=== PATIENT | female | born 1970 | race Caucasian/White ===

== ENCOUNTER 2018-01-28 07:07 | Day surgery (SDC) | payer MEDICARE, MEDICAID ==
[~2018-01-28] VITALS: Ht 166.4 cm; Wt 61.4 kg
[2018-01-28] VITALS (14 sets, daily range): BP systolic 100–148; BP diastolic 59–89
[~2018-01-28 07:07] MED LIST: ALB0.5UD IH; CELE-193 PO; CLON-528 PO; DULO60CA45; HYDR-565 PO; HYDR-569 PO; LAMO100T65 PO; LANS15CA47 PO; LORA-660 PO; METO-410 PO; ONDA4TAB6 PO; QUET200T30 PO; SPIIN INH; TIZA4CAP PO; TRAZ-91 PO; ZOLP5TAB8 PO
[2018-01-28] MEDS ORDERED: normal saline 1000ml 1,000 ML IV PRN (07:30)
[2018-01-28] MEDS ORDERED: QUET-1 PO (07:58)
[2018-01-28] MEDS ORDERED: CELE-193 PO (07:58)
[2018-01-28] MEDS ORDERED: DULO20CA50 PO (07:58)
[2018-01-28] MEDS ORDERED: TRAZ-146 PO (07:58)
[2018-01-28] MEDS ORDERED: DEXL60CA3 PO (07:58)
[2018-01-28 08:07] LABS: BASOPHILS # (AUTO) 0.1 X10'3 (0-0.2); BASOPHILS % (AUTO) 1.1 % (0-1); EOSINOPHILS % (AUTO) 0.1 % (0-6); HEMATOCRIT 43.2 % (35.0-45.0); HEMOGLOBIN 14.9 g/dl (12.0-16.0); LYMPHOCYTES % (AUTO) 36.7 % (21-51); MEAN CORPUSCULAR HEMOGLOBIN 34.5 PG (27.0-31.0); MEAN CORPUSCULAR HGB CONC 34.5 % (33.0-36.5); MEAN CORPUSCULAR VOLUME 100.2 FL (78-98); MEAN PLATELET VOLUME 7.2 FL (7.4-10.4); MONOCYTES # (AUTO) 0.5 X10'3 (0-0.9); MONOCYTES % (AUTO) 8.9 % (2-12); NEUTROPHILS # (AUTO) 2.9 X10'3 (1.8-7.7); NEUTROPHILS % (AUTO) 53.2 % (42-75); PLATELET COUNT 313 X10'3 (140-440); RED BLOOD COUNT 4.31 X10'6 (4.20-5.60); WHITE BLOOD COUNT 5.5 X10'3 (4.5-11.0)
[2018-01-28] MEDS ORDERED: fentaNYL/PF 50MCG/1 ML 2ML syringe IV ONE (08:10)
[2018-01-28] MEDS ORDERED: MIDAZolam 1mg/ml 10ml vial IV ONE (08:10)
[2018-01-28 08:13] LABS: INR 0.9 INR; PROTHROMBIN TIME 9.8 SECONDS (9.0-12.0)
[2018-01-28] MEDS ORDERED: pneumococcal 23-VAL P-sac vacc 25 mcg/0.5ml vial IMVAC ONE (10:00)
[2018-01-28] MEDS ORDERED: normal saline 1000ml 1,000 ML IV SCH (10:23)
== END 2018-01-28 12:30 | disposition home or self-care (01) ==
LOC: SSTAY O 07:07
PROVIDERS: ATTEND Radiology Diagnostic Radiology
DX: K73.2 Chronic active hepatitis, not elsewhere classified (principal); K74.0 Hepatic fibrosis; J44.9 Chronic obstructive pulmonary disease, unspecified; K21.9 Gastro-esophageal reflux disease without esophagitis; E03.9 Hypothyroidism, unspecified; I10 Essential (primary) hypertension; F17.210 Nicotine dependence, cigarettes, uncomplicated; M19.90 Unspecified osteoarthritis, unspecified site; F32.89 Other specified depressive episodes; Z23 Encounter for immunization; Z85.41 Personal history of malignant neoplasm of cervix uteri; Z88.0 Allergy status to penicillin; Z98.51 Tubal ligation status; Z88.5 Allergy status to narcotic agent; Z79.891 Long term (current) use of opiate analgesic; Z88.8 Allergy status to other drugs, medicaments and biological substances; Z79.899 Other long term (current) drug therapy; Z98.890 Other specified postprocedural states
CPT/HCPCS: 36415; 47000; 76942; 85025; 85610; 90732; J2250; J3010; J7030; 88307; 88313

== ENCOUNTER 2019-06-01 21:35 | Emergency (ER) | payer MEDICARE, MEDICAID ==
[~2019-06-01] VITALS: Ht 165.1 cm; Wt 60.9 kg
[~2019-06-01 21:35] MED LIST changes: +DEXL60CA3 PO; +DULO20CA50 PO; -HYDR-565 PO; -HYDR-569 PO; -LANS15CA47 PO; -ONDA4TAB6 PO; +QUET-1 PO; -QUET200T30 PO; -TIZA4CAP PO; +TRAZ-219 PO; -TRAZ-91 PO; -ZOLP5TAB8 PO
[2019-06-01] MEDS ORDERED: morphine 4 MG/ML inj SYRINge IV PRN (21:50)
[2019-06-01] MEDS ORDERED: morphine 10mg/ml inj. IV PRN (21:53)
[2019-06-01 22:15] LABS: BASOPHILS # (AUTO) 0.1 X10'3 (0-0.2); BASOPHILS % (AUTO) 0.8 % (0-1); EOSINOPHILS % (AUTO) 0.2 % (0-6); HEMATOCRIT 40.4 % (35.0-45.0); HEMOGLOBIN 14.2 g/dl (12.0-16.0); LYMPHOCYTES # (AUTO) 2.9 X10'3 (1.1-4.8); LYMPHOCYTES % (AUTO) 38.2 % (21-51); MEAN CORPUSCULAR HEMOGLOBIN 34.2 PG (27.0-31.0); MEAN CORPUSCULAR HGB CONC 35.3 g/dL (33.0-36.5); MEAN CORPUSCULAR VOLUME 97.1 FL (78-98); MEAN PLATELET VOLUME 7.1 FL (7.4-10.4); MONOCYTES # (AUTO) 0.7 X10'3 (0-0.9); MONOCYTES % (AUTO) 9.4 % (2-12); NEUTROPHILS # (AUTO) 3.9 X10'3 (1.8-7.7); NEUTROPHILS % (AUTO) 51.4 % (42-75); PLATELET COUNT 339 X10'3 (140-440); RED BLOOD COUNT 4.16 X10'6 (4.20-5.60); RED CELL DISTRIBUTION WIDTH 13.6 % (11.5-14.5); WHITE BLOOD COUNT 7.5 X10'3 (4.5-11.0)
[2019-06-01 22:26] LABS: PARTIAL THROMBOPLASTIN TIME 31 SECONDS (22-32)
[2019-06-01 22:28] LABS: ALBUMIN 3.4 G/DL (3.4-5.0); ALBUMIN/GLOBULIN RATIO 0.8 (1.1-1.5); ANION GAP 10 (8-16); ASPARTATE AMINO TRANSFERASE 13 U/L (10-37); BILIRUBIN,TOTAL 0.4 MG/DL (0.1-1.0); BLOOD UREA NITROGEN 8 MG/DL (7-18); BUN/CREATININE RATIO 12.5 (6.6-38.0); CALCIUM 8.6 MG/DL (8.5-10.1); CHLORIDE 103 MMOL/L (99-107); CREATININE 0.64 MG/DL (0.40-0.90); GLUCOSE 91 MG/DL (70-104); SODIUM 138 MMOL/L (135-145); TOTAL CARBON DIOXIDE 25.2 MMOL/L (24-32); TOTAL PROTEIN 7.5 G/DL (6.4-8.2); eGFR > 90 ML/MIN
[2019-06-01 22:29] LABS: ALANINE AMINOTRANSFERASE 9 U/L (12-78); ALKALINE PHOSPHATASE 71 IU/L (46-116)
[2019-06-01] MEDS ORDERED: HYDROcodone/acetaminophen 10/325mg tab PO ONE (23:00)
[2019-06-01 23:08] VITALS: BP 140/94
[2019-06-02] MEDS ORDERED: HYDR-4353 PO (00:02)
== END 2019-06-02 00:08 | disposition home or self-care (01) ==
LOC: ER 21:35
DX: S70.02XA Contusion of left hip, initial encounter (principal); E78.00 Pure hypercholesterolemia, unspecified; I10 Essential (primary) hypertension; J45.909 Unspecified asthma, uncomplicated; J44.9 Chronic obstructive pulmonary disease, unspecified; K21.9 Gastro-esophageal reflux disease without esophagitis; G89.29 Other chronic pain; M06.9 Rheumatoid arthritis, unspecified; F17.200 Nicotine dependence, unspecified, uncomplicated; F19.90 Other psychoactive substance use, unspecified, uncomplicated; F12.90 Cannabis use, unspecified, uncomplicated; F31.9 Bipolar disorder, unspecified; Z79.899 Other long term (current) drug therapy; Z98.890 Other specified postprocedural states; Z88.5 Allergy status to narcotic agent; Z88.0 Allergy status to penicillin; Z91.09 Other allergy status, other than to drugs and biological substances; W18.39XA Other fall on same level, initial encounter; Y93.89 Activity, other specified; Y92.59 Other trade areas as the place of occurrence of the external cause; Y99.8 Other external cause status
CPT/HCPCS: 36415; 71045; 73502; 80053; 85025; 85610; 85730; 86885; 86900; 86901; 93005; 96374; 99284; J2270

== ENCOUNTER 2022-01-22 04:16 | Emergency (ER) | payer MEDICARE, MEDICAID ==
[~2022-01-22] VITALS: Ht 167.6 cm; Wt 72.7 kg
[~2022-01-22 04:16] MED LIST changes: -DULO60CA45; +DULO60CA60; +LORA-657 PO; -LORA-660 PO; -TRAZ-219 PO; +TRAZ-256 PO
[2022-01-22 05:10] LABS: BASOPHILS % (AUTO) 0.2 % (0-1); EOSINOPHILS % (AUTO) 0.1 % (0-6); HEMATOCRIT 43.8 % (35.0-45.0); HEMOGLOBIN 14.8 g/dl (12.0-16.0); LYMPHOCYTES # (AUTO) 1.4 X10'3 (1.1-4.8); LYMPHOCYTES % (AUTO) 11.8 % (21-51); MEAN CORPUSCULAR HEMOGLOBIN 31.9 PG (27.0-31.0); MEAN CORPUSCULAR HGB CONC 33.7 g/dL (33.0-36.5); MEAN CORPUSCULAR VOLUME 94.6 FL (78-98); MEAN PLATELET VOLUME 7.3 FL (7.4-10.4); MONOCYTES % (AUTO) 8.1 % (2-12); NEUTROPHILS # (AUTO) 9.6 X10'3 (1.8-7.7); NEUTROPHILS % (AUTO) 79.8 % (42-75); PLATELET COUNT 342 X10'3 (140-440); RED BLOOD COUNT 4.63 X10'6 (4.20-5.60); RED CELL DISTRIBUTION WIDTH 13.8 % (11.5-14.5); WHITE BLOOD COUNT 12.1 X10'3 (4.5-11.0)
[2022-01-22] MEDS ORDERED: normal saline 1000ML IV soln IVB ONE ×2 (05:10→05:45)
[2022-01-22] MEDS ORDERED: ondansetron/PF 4mg/2ml inj IV ONE (05:10)
[2022-01-22 05:12] LABS: CLARITY,URINE CLOUDY (Clear); COLOR,URINE YELLOW (Yellow); GLUCOSE, URINE NEGATIVE (Neg); KETONES,URINE NEGATIVE (Neg); LEUKOCYTE ESTERASE ,URINE NEGATIVE (Neg); OCCULT BLOOD,URINE NEGATIVE (Neg); PH,URINE 5.5 (4.8-8.0); PROTEIN,URINE 30 mg/dl (Neg); UROBILINOGEN,URINE 0.2 E.U/dL (0.2-1.0)
[2022-01-22 05:13] LABS: UA COLLECTION TYPE FOLEY CATH
[2022-01-22 05:15] LABS: NITRITES, URINE NEGATIVE (Neg)
[2022-01-22 05:22] LABS: ALANINE AMINOTRANSFERASE 33 U/L (12-78); ALBUMIN 3.9 G/DL (3.4-5.0); ALKALINE PHOSPHATASE 85 IU/L (46-116); ANION GAP 11 (8-16); ASPARTATE AMINO TRANSFERASE 98 U/L (10-37); BILIRUBIN,TOTAL 0.8 MG/DL (0.1-1.0); BLOOD UREA NITROGEN 23 MG/DL (7-18); CALCIUM 9.2 MG/DL (8.5-10.1); CHLORIDE 105 MMOL/L (99-107); CREATININE 1.35 MG/DL (0.40-0.90); GLUCOSE 128 MG/DL (70-104); POTASSIUM 3.4 MMOL/L (3.5-5.1); SODIUM 143 MMOL/L (135-145); TOTAL CARBON DIOXIDE 27.2 MMOL/L (24-32); TOTAL PROTEIN 7.7 G/DL (6.4-8.2); eGFR 41 ML/MIN
--- NOTE | 2022-01-22 05:24 | NUR ---
[id number] Written by SO for gravely disabled
[2022-01-22 05:30] LABS: AMORPHOUS URATES 3+; BACTERIA,URINE NONE SEEN /HPF (Neg); MUCUS STRANDS FEW /LPF (Neg); RBC,URINE NONE SEEN /HPF (0-2); SQUAMOUS EPITHELIAL CELL,UR MODERATE /LPF (FEW); WBC,URINE 0-4 /HPF (0-4)
[2022-01-22 05:31] LABS: ETHANOL < 0.010 GM/DL (0.0-0.010)
[2022-01-22 05:36] LABS: TRANSITIONAL EPI CELLS,URINE FEW /HPF
[2022-01-22 05:57] LABS: URINE AMPHETAMINE SCREEN POSITIVE (Neg); URINE BARBITUATE SCREEN NEGATIVE (Neg); URINE BENZODIAZEPINES SCREEN POSITIVE (Neg); URINE CANNABINOID SCREEN POSITIVE (Neg); URINE COCAINE SCREEN NEGATIVE (Neg); URINE METHADONE SCREEN NEGATIVE (Neg); URINE OPIATE SCREEN NEGATIVE (Neg); URINE PHENCYCLIDINE SCREEN NEGATIVE (Neg)
--- NOTE | 2022-01-22 07:12 | NUR ---
PT ABLE TO TELL ME HER NAME, AND KNOWS SHE IS IN THE HOSPITAL. I ASKED PT IF SHE USES ANY DRUGS AND SHE STATED "I WOULD DO SOME IF YOU WOULD LEAVE ME THE FUCK ALONE."
--- NOTE | 2022-01-22 09:49 | NUR ---
PT STATED " LAST NIGHT WAS JUST A TERRIBLE NIGHT, I TOOK TOO MANY PILLS." PT STATES SHE TAKES TRAZODONE AND SEROQUEL WHICH SHE SAYS ARE PRESCRIBED. PT DENIES ANY DRUG USE.
--- NOTE | 2022-01-22 13:35 | NUR ---
Packet sent to [facility]
[2022-01-22] MEDS ORDERED: haloperidol lactate 5mg/ml inj IM ONE (14:05)
[2022-01-22] MEDS ORDERED: diphenhydrAMINE 50 mg/ml inj IV ONE (14:05)
[2022-01-22] MEDS ORDERED: LORazepam 2 mg/ml vial IV ONE (14:05)
--- NOTE | 2022-01-22 14:45 | NUR ---
Received Patient to Bed #22 from the ED. Pt's soft wrist restraints untied and pt no longer restrained as of 1445. Patient yelling incoherent words. Restless in bed. Transferred from [facility] to medical bed. HOB slightly elevated. Patient has a Saline Lock in her left arm. F/C patent and draining a small amount of juan urine. Patient picking at the air and the blanket on her bed. Sitting up and down. Patient opens eyes in a sitting position then will relax and lay back down with her head on the pillow. This continued for the next 45 minutes. Sitting with patient 1:1 at bedside. Patient finally fell asleep at approximately 1535. Sleeping at this time. Will continue to monitor closely.
--- NOTE | 2022-01-22 16:22 | NUR ---
Pt. continues to sleep at this time. Will continue to monitor.
--- NOTE | 2022-01-22 18:58 | NUR ---
Received pt sleeping. Catheter in. Restraints not in use. Breathing is even and non labored. Pt resting peacfully at this time.
--- NOTE | 2022-01-22 21:43 | NUR ---
Patient appears to be sleeping.
--- NOTE | 2022-01-22 23:27 | NUR ---
Patient awake. asked to use restroom. Catheter not in when pt awoken. patient asked for sandwich and water. Patient denies any S/S of pain or trauma in groin area, will continue to monitor.
--- NOTE | 2022-01-23 00:53 | NUR ---
Pt appears to be sleeping at this time.
--- NOTE | 2022-01-23 03:49 | NUR ---
Pt appears to be sleeping at this time.
--- NOTE | 2022-01-23 05:43 | NUR ---
Patient cooperative with vital signs, appears to be sleeping at this moment.
--- NOTE | 2022-01-23 06:40 | NUR ---
Patient sleeping supine. No distress observed. Continue to monitor.
[2022-01-23] MEDS: OLANZapine 5mg rapidly disint. tablet PO SCH ×3 (08:00→19:09)
--- NOTE | 2022-01-23 08:11 | NUR ---
Patient sitting up and eating breakfast. RN gave patient her medication but patient refused. Continue to monitor.
--- NOTE | 2022-01-23 10:03 | NUR ---
Patient sleeping supine. No distress observed. Continue to monitor.
--- NOTE | 2022-01-23 12:06 | NUR ---
Patient sleeping. RN placed patient's tray at bedside. RN advised patient that her lunch was here. Patient did not awaken. Respirations equal and nonlabored. Continue to monitor.
--- NOTE | 2022-01-23 14:03 | NUR ---
Nora sleeping supine. Patient is lightly snoring. No distress observed. Continue to monitor.
--- NOTE | 2022-01-23 16:24 | NUR ---
Patient sleeping on right side. No distress observed. Patient is snoring lightly. Continue to monitor.
--- NOTE | 2022-01-23 17:35 | NUR ---
Patient awoke and eating her cold lunch. RN advised patient that warm food should be coming in about 30 minutes. Patient asked RN how long she would be here. RN explained the 72 hour hold and getting her into a psychiatric facility to get her back on her meds. Patient stated "Then I'm going to be here forever because I'm no getting on any GD meds!" Continue to monitor.
[2022-01-23] MEDS ORDERED: albuterol 2.5 MG/3 ML nebule NEB ONE (18:35)
--- NOTE | 2022-01-23 19:04 | NUR ---
The patient was up to use the bathroom and became short of breath and asking for a breathing treatment. She was coughing and had increased anxiety. HR 107 and 02 sats were 93% on room air. Lungs were very coarse. Dr. Vizcarra made aware and orders received. The patient had the breathing treatment and stated she was doing better after wards. She is very irritable with any interaction. She was crying and stated that she just wanted to . She was not cooperative with answering more than one or two questions. She did eat a small amount of her dinner. She was given extra juice and fresh water and encouraged to increase po fluids. She did take the zypexa but was irritable about it.
--- NOTE | 2022-01-23 21:07 | NUR ---
The patient appears to be sleeping
--- NOTE | 2022-01-23 23:19 | NUR ---
The patient appears to be sleeping
--- NOTE | 2022-01-24 00:57 | NUR ---
The patient appears to be sleeping
--- NOTE | 2022-01-24 02:06 | NUR ---
The patient appears to be sleeping
--- NOTE | 2022-01-24 03:41 | NUR ---
The patient appears to be sleeeping
--- NOTE | 2022-01-24 05:44 | NUR ---
The patient appears to be sleeping
--- NOTE | 2022-01-24 06:45 | NUR ---
Patient sleeping supine. No distress observed. Continue to monitor.
--- NOTE | 2022-01-24 07:43 | NUR ---
Patient is awake and alert and does not appear psychotic. Patient is upset she is here. Patient talking on the phone.
[2022-01-24] MEDS: OLANZapine 5mg rapidly disint. tablet PO SCH ×2 (08:00→19:43)
--- NOTE | 2022-01-24 08:17 | NUR ---
Patient eating lunch. No distress observed. Continue to monitor.
--- NOTE | 2022-01-24 09:11 | NUR ---
Patient speaking on the phone and explaining to her boyfriend that she will bet out at 3:15 tomorrow (that is the time her 5150 is up). No distress observed. Continue to monitor.
--- NOTE | 2022-01-24 11:04 | NUR ---
Patient sleeping in right side. No distress observed. Continue to monitor.
--- NOTE | 2022-01-24 13:16 | NUR ---
Patient eating lunch. No distress observed. Continue to monitor.
--- NOTE | 2022-01-24 16:06 | NUR ---
Patient continues to sleep. No distress observed. Continue to monitor.
[2022-01-24] MEDS: albuterol 2.5 MG/3 ML nebule NEB PRN (18:49)
--- NOTE | 2022-01-24 19:19 | NUR ---
One to one with the patient. She denies thoughts to harm herself. She denies that she is hearing voices. Her lungs are very coarse and she became very sob when up to use the bathroom and a respiratory treatment was given. She is agreeing to take the zyprexa at . She does not want to be placed in a psychiatric hospital. She stated that she would be willing to follow up as an outpatient at [facility]. Her plan to go to her mothers and states she has a food stamp card for food. It is unclear if her mother would agree to this plan but she will be re-evaluated by [facility] in the am.
--- NOTE | 2022-01-24 21:39 | NUR ---
The patient appears to be sleeping
--- NOTE | 2022-01-24 22:43 | NUR ---
The patient appears to be sleeping
--- NOTE | 2022-01-25 00:31 | NUR ---
The patient appears to be sleeping
--- NOTE | 2022-01-25 01:35 | NUR ---
The patient appears to be sleeping
--- NOTE | 2022-01-25 03:03 | NUR ---
The patient appears to be sleeping
--- NOTE | 2022-01-25 04:04 | NUR ---
The patient appears to be sleeping
--- NOTE | 2022-01-25 05:17 | NUR ---
The patient appears to be sleeping
[2022-01-25 05:41] VITALS: BP 141/109
--- NOTE | 2022-01-25 06:29 | NUR ---
Patient sleeping on right side. No distress observed. Continue to monitor.
[2022-01-25] MEDS: OLANZapine 5mg rapidly disint. tablet PO SCH (08:00)
--- NOTE | 2022-01-25 08:15 | NUR ---
Patient eating breakfast. No distress observed. Continue to monitor.
[2022-01-25] MEDS: albuterol 2.5 MG/3 ML nebule NEB PRN (08:46)
--- NOTE | 2022-01-25 09:28 | NUR ---
Met with patient in regards to substance use and to see if patient wanted any resources for treatment options. Patient declined and said she isn't addicted to meth.
--- NOTE | 2022-01-25 11:29 | NUR ---
Patient sleeping. No distress observed. Continue to monitor.
--- NOTE | 2022-01-25 12:15 | NUR ---
Patient eating lunch. No distress observed. Continue to monitor.
== END 2022-01-25 15:39 | disposition home or self-care (01) ==
LOC: ER 04:17
DX: S40.012A Contusion of left shoulder, initial encounter (principal); Z20.822 Contact with and (suspected) exposure to COVID-19; F79 Unspecified intellectual disabilities; R41.82 Altered mental status, unspecified; I10 Essential (primary) hypertension; E78.00 Pure hypercholesterolemia, unspecified; J44.9 Chronic obstructive pulmonary disease, unspecified; K21.9 Gastro-esophageal reflux disease without esophagitis; G89.29 Other chronic pain; M19.90 Unspecified osteoarthritis, unspecified site; F31.9 Bipolar disorder, unspecified; F20.9 Schizophrenia, unspecified; F12.90 Cannabis use, unspecified, uncomplicated; Z98.51 Tubal ligation status; Z86.19 Personal history of other infectious and parasitic diseases; Z72.89 Other problems related to lifestyle; Z88.0 Allergy status to penicillin; Z88.5 Allergy status to narcotic agent; Z88.8 Allergy status to other drugs, medicaments and biological substances; Z79.899 Other long term (current) drug therapy; X58.XXXA Exposure to other specified factors, initial encounter; Y93.89 Activity, other specified; Y92.89 Other specified places as the place of occurrence of the external cause; Y99.8 Other external cause status
CPT/HCPCS: 36415; 80053; 80305; 80320; 81001; 82140; 84443; 85025; 87635; 94640; 96361; 96372; 96374; 96375; 99285; C9803; J1200; J1630; J2060; J7030; 93005

== ENCOUNTER 2023-03-03 11:53 | Emergency (ER) | payer MEDICARE, MEDICAID ==
[~2023-03-03] VITALS: Ht 167.6 cm; Wt 64.4 kg
[2023-03-03 12:03] VITALS: BP 176/107; PULSE 92; RESP 22; TEMP 97.8; O2SAT 97
[2023-03-03 13:37] LABS: BASOPHILS # (AUTO) 0.1 X10'3 (0-0.2); BASOPHILS % (AUTO) 0.8 % (0-1); EOSINOPHILS # (AUTO) 0.1 X10'3 (0-0.9); EOSINOPHILS % (AUTO) 0.8 % (0-6); HEMOGLOBIN 13.9 g/dl (12.0-16.0); LYMPHOCYTES # (AUTO) 2.4 X10'3 (1.1-4.8); MEAN CORPUSCULAR HEMOGLOBIN 32.7 PG (27.0-31.0); MEAN CORPUSCULAR VOLUME 96.1 FL (78-98); MEAN PLATELET VOLUME 7.5 FL (7.4-10.4); MONOCYTES # (AUTO) 0.4 X10'3 (0-0.9); MONOCYTES % (AUTO) 6.2 % (2-12); NEUTROPHILS # (AUTO) 3.9 X10'3 (1.8-7.7); NEUTROPHILS % (AUTO) 57.2 % (42-75); PLATELET COUNT 389 X10'3 (140-440); RED BLOOD COUNT 4.27 X10'6 (4.20-5.60); RED CELL DISTRIBUTION WIDTH 14.2 % (11.5-14.5); WHITE BLOOD COUNT 6.7 X10'3 (4.5-11.0)
[2023-03-03] MEDS ORDERED: CefTRIAXone 2gm/D5W 50ml BAG 50 ML IV ONE (14:05)
[2023-03-03] MEDS ORDERED: TETanus/Pertussis (Acell)/Diphther VAC/PF (Tdap-Adult) 0.5ml syringe IMVAC ONE (14:05)
[2023-03-03 14:09] LABS: ALANINE AMINOTRANSFERASE 16 U/L (12-78); ALBUMIN 3.3 G/DL (3.4-5.0); ALBUMIN/GLOBULIN RATIO 0.8 (1.1-1.5); ALKALINE PHOSPHATASE 89 IU/L (46-116); ANION GAP 10 (8-16); ASPARTATE AMINO TRANSFERASE 13 U/L (10-37); BILIRUBIN,TOTAL 0.2 MG/DL (0.1-1.0); BLOOD UREA NITROGEN 18 MG/DL (7-18); BUN/CREATININE RATIO 20.2 (10.0-20.0); CALCIUM 8.8 MG/DL (8.5-10.1); CHLORIDE 104 MMOL/L (99-107); CREATININE 0.89 MG/DL (0.40-0.90); GLUCOSE 103 MG/DL (70-104); MAGNESIUM 2.1 MG/DL (1.5-2.4); POTASSIUM 3.4 MMOL/L (3.5-5.1); SODIUM 139 MMOL/L (135-145); TOTAL CARBON DIOXIDE 25.3 MMOL/L (24-32); TOTAL PROTEIN 7.2 G/DL (6.4-8.2); eCRCL 67 ML/MIN; eGFR 66 ML/MIN
[2023-03-03] MEDS ORDERED: LIDOcaine 1% W/epiNEPHrine 1:100,000 20ml vial IJ ONE (14:20)
[2023-03-03] MEDS ORDERED: CEPH250T PO (15:36)
[2023-03-03] MEDS ORDERED: doxycycline inj 100 MG in normal saline 100ml IV soln 100 ML IV SCH ×4 (20:00)
== END 2023-03-03 15:48 | disposition home or self-care (01) ==
LOC: ER 11:54
DX: L02.414 Cutaneous abscess of left upper limb (principal); E78.00 Pure hypercholesterolemia, unspecified; I10 Essential (primary) hypertension; J44.9 Chronic obstructive pulmonary disease, unspecified; K21.9 Gastro-esophageal reflux disease without esophagitis; F31.9 Bipolar disorder, unspecified; F17.200 Nicotine dependence, unspecified, uncomplicated; Z88.0 Allergy status to penicillin; Z88.8 Allergy status to other drugs, medicaments and biological substances; Z88.5 Allergy status to narcotic agent; Z79.2 Long term (current) use of antibiotics; Z79.899 Other long term (current) drug therapy; Z98.51 Tubal ligation status
CPT/HCPCS: 10060; 36415; 80053; 83605; 83735; 84145; 85025; 87040; 90471; 90715; 96365; 99284; J0696; J7030; A6449

== ENCOUNTER 2024-07-12 23:57 | Emergency (ER) | payer BC, MEDICAID ==
[~2024-07-12] VITALS: Ht 167.6 cm; Wt 57.0 kg
[~2024-07-12 23:57] MED LIST changes: -CLON-528 PO; +CLON-850 PO
[2024-07-13 00:17] VITALS: TEMP 97.3
[2024-07-13] MEDS: CefTRIAXone 500MG IM Kit w/LIDOcaine IM ONE (01:01)
[2024-07-13] MEDS ORDERED: DOXY100C43 PO (01:26)
[2024-07-13 01:40] VITALS: BP 136/89; PULSE 89; RESP 15; O2SAT 99
[2024-07-13 02:02] LABS: SYPHILIS SCREENING TEST POC POSITIVE (Negative)
== END 2024-07-13 01:39 | disposition home or self-care (01) ==
LOC: ER 23:58
DX: Z20.2 Contact with and (suspected) exposure to infections with a predominantly sexual mode of transmission (principal); R30.9 Painful micturition, unspecified; E78.00 Pure hypercholesterolemia, unspecified; I10 Essential (primary) hypertension; K21.9 Gastro-esophageal reflux disease without esophagitis; G89.29 Other chronic pain; F20.9 Schizophrenia, unspecified; F12.90 Cannabis use, unspecified, uncomplicated; J45.909 Unspecified asthma, uncomplicated; J44.9 Chronic obstructive pulmonary disease, unspecified; F32.A Depression, unspecified; F17.210 Nicotine dependence, cigarettes, uncomplicated; Z88.0 Allergy status to penicillin; Z98.51 Tubal ligation status; Z85.41 Personal history of malignant neoplasm of cervix uteri; Z88.5 Allergy status to narcotic agent; Z88.8 Allergy status to other drugs, medicaments and biological substances; Z79.899 Other long term (current) drug therapy
CPT/HCPCS: 36415; 86592; 96372; 99283; J0696